=== PATIENT | male | born 1980 | race Caucasian/White ===

== ENCOUNTER 2020-01-14 18:05 | Emergency (ER) | payer OTHER, SELFPAY ==
[2020-01-14 18:21] VITALS: BP 120/65; PULSE 109; RESP 18; TEMP 39.4; O2SAT 100
--- NOTE | 2020-01-14 18:38 | ED.URI ---
HPI - URI/Sore Throat General Chief Complaint: Upper Respiratory Infection Stated Complaint: Cough/Fever/Chills/Bodyaches Time Seen by Provider: 01/14/20 18:23 Source: patient and RN notes reviewed Mode of arrival: ambulatory Limitations: no limitations History of Present Illness HPI Narrative: Patient presents today with a 2-day history of fever up to 103, body aches, chills, cough, mild headache and one episode of diarrhea. Denies shortness of breath, sore throat, nasal congestion, nausea or vomiting. He has been taking ibuprofen and cough syrup without much relief. Patient has rheumatoid arthritis and takes methotrexate. MD elicited complaint: fever and other (Body aches) Related Data Home Medications Medication Instructions Recorded Confirmed folic acid 1 mg PO DAILY 11/28/19 01/14/20 ibuprofen 800 mg PO DIRECTED 11/28/19 01/14/20 methotrexate sodium 2.5 mg PO WEEKLY 11/28/19 01/14/20 Allergies Allergy/AdvReac Type Severity Reaction Status Date / Time No Known Allergies Allergy Unknown Verified 01/14/20 18:26 Review of Systems Review of Systems: Narrative: CONSTITUTIONAL:+ Body aches, chills, fever EYES: Denies visual changes, redness, or discharge. ENT: Denies rhinorrhea, congestion, sore throat, or otalgia. CARDIOVASCULAR: Denies chest pain, palpitations, or edema. RESPIRATORY: Denies dyspnea.+ Cough GASTROINTESTINAL: Denies abdominal pain, nausea, vomiting. + Diarrhea GENITOURINARY: Denies dysuria or hematuria. SKIN: Denies rash, itching, or wounds. MUSCULOSKELETAL: Denies back pain, joint pain, or myalgia. NEUROLOGIC: Denies numbness, tingling, or weakness.+ Headache PSYCH: Denies depression or anxiety. [facility] Past Medical History Medical History (Updated 01/14/20 @ 19:02 by Yelitza Alfonso, HEADMASTER/MISTRESS, ) Rheumatoid arthritis Comments At time of signature, I have reviewed and agree with nursing past medical, surgical, social and family history unless otherwise noted. Please see nursing chart for further information. There is no relevant family history pertinent to the presenting complaint Exam Narrative: Exam Narrative: GENERAL: Ill-appearing, well-nourished, and in no acute distress. HEAD: Normocephalic, atraumatic. EYES: EOMI. No redness or drainage. Conjunctivae normal. ENT: Mucous membranes pink and moist. Nares clear. No rhinorrhea. TMs normal bilaterally. Throat mildly erythematous without edema or exudate. Uvula midline. NECK: Normal AROM. Supple. No lymphadenopathy. CHEST: No respiratory distress. Clear to auscultation. HEART: Regular rate and rhythm. No murmur appreciated. Normal peripheral pulses. EXTREMITIES: Normal range of motion. No edema. SKIN: Warm, dry, no rash. NEURO: No focal deficits. Alert and oriented x3. Gait steady. PSYCH: Normal affect. No signs of depression or anxiety. Course Course Emergency Course: Patient's course is likely influenza or similar virus. We will treat patient with Tamiflu as he is immunosuppressed. Instructed him on [id number] medications and reasons to go to the ER. Vital Signs Vital signs: Vital Signs Temperature 103.0 F H 01/14/20 18:21 Pulse Rate 109 H 01/14/20 18:21 Respiratory Rate 18 01/14/20 18:21 Blood Pressure 120/65 01/14/20 18:21 Pulse Oximetry 100 01/14/20 18:21 Temperature 103.0 F H 01/14/20 18:21 Pulse Rate 109 H 01/14/20 18:21 Respiratory Rate 18 01/14/20 18:21 Blood Pressure 120/65 01/14/20 18:21 Pulse Oximetry 100 01/14/20 18:21 Reviewed. Tachycardia likely due to fever MDM - URI/Sore Throat Differential Diagnosis Differential diagnosis: Likely upper respiratory infection, viral infection, influenza and other (Strep throat) Lab Data Attestation: I reviewed the patient's lab results. Labs: Influenza A Screen Negative Reference Range: Negative Influenza B Screen Negative Reference Range: Negative Strep Screen Presumptiv
== END 2020-01-14 19:04 | disposition home or self-care (01) ==
PROVIDERS: Emergency Provider Nurse Practitioner; PCP Nurse Practitioner Family
DX: R05 Cough (principal); R50.9 Fever, unspecified; R52 Pain, unspecified; M06.9 Rheumatoid arthritis, unspecified
CPT/HCPCS: 87081; 87804; 87880; 99213; G0463

== ENCOUNTER 2021-10-20 10:12 | Emergency (ER) | payer OTHER, SELFPAY ==
[2021-10-20 10:21] VITALS: BP 106/72; PULSE 99; RESP 16; TEMP 36.9; O2SAT 96
--- NOTE | 2021-10-20 10:28 | ED.GENADULT ---
HPI - General Adult General Chief complaint: Upper Respiratory Infection Stated complaint: congestion Time Seen by Provider: 10/20/21 10:28 Source: patient Mode of arrival: ambulatory Limitations: no limitations History of Present Illness HPI narrative: 21-year-old male patient presents to the [facility] with complaints of a cough and congestion for the past week. Patient states he was vaccinated against Covid with the one Theron & Theron shot. Patient denies any fevers, body aches or chills but states he has had a very deep cough and sometimes coughs up some sputum as well as congestion to the nose or runny nose at times. Patient denies any nausea, vomiting or diarrhea. Denies being around anybody that has been positive for Covid. Patient states he has been taking [id number] Mucinex for his symptoms. Related Data Home Medications Medication Instructions Recorded Confirmed folic acid 1 mg PO DAILY 11/28/19 10/20/21 ibuprofen 800 mg PO DIRECTED 11/28/19 10/20/21 methotrexate sodium 2.5 mg PO WEEKLY 11/28/19 10/20/21 Allergies Allergy/AdvReac Type Severity Reaction Status Date / Time No Known Allergies Allergy Unknown Verified 10/20/21 10:43 Review of Systems Review of Systems: CONSTITUTIONAL: Denies fever, chills, or sweats. EYES: Denies visual changes, redness, or discharge. ENT: Positive rhinorrhea, congestion, denies sore throat, or otalgia. CARDIOVASCULAR: Denies chest pain, palpitations, or edema. RESPIRATORY: Positive cough, denies dyspnea. GASTROINTESTINAL: Denies abdominal pain, nausea, vomiting, or diarrhea. GENITOURINARY: Denies dysuria or hematuria. SKIN: Denies rash or itching. MUSCULOSKELETAL: Denies back pain, joint pain, or myalgia. NEUROLOGIC: Denies headache, numbness, or weakness. PSYCHIATRIC: Denies anxiety or depression. [facility] Past Medical History Medical History (Updated 10/20/21 @ 11:32 by LASHAY Gray) Chronic back pain Rheumatoid arthritis Surgical History Surgical History (Updated 10/20/21 @ 10:29 by LASHAY Gray) History of tonsillectomy Comments At the time of my signature I agree with nursing past medical history, surgical, social, and family history. There is no relevant family history pertinent to the presenting complaint. Exam Narrative: GENERAL: ill-appearing, well-nourished, and in no acute distress. HEAD: Normocephalic, atraumatic. EYES: PERRLA and EOMI. ENT: Nares with erythema and edema noted bilaterally, no rhinorrhea or epistaxis. Mucous membranes moist. Posterior pharynx with no erythema, tonsillar Zaul, exudates or lesions present. Bilateral TMs are clear with no erythema or foreign bodies to the canal. NECK: Supple. No lymphadenopathy CHEST: Clear to auscultation. No respiratory distress. Patient able talk clear complete sentences. There is some coughing noted during exam. HEART: Regular rate and rhythm. No murmur heard. Normal peripheral pulses. ABDOMEN: Soft, nontender, nondistended, normal active bowel sounds. EXTREMITIES: Normal range of motion. No edema. SKIN: Warm, dry, no rash. NEURO: No focal deficits. Alert and oriented x3. Course Reevaluation(s) Reevaluation #1: Reevaluated patient notified him that his rapid Covid and flu are both negative. Discussed with him I think this is most likely viral bronchitis which is causing his cough and congestion. We will discharge him home with an albuterol inhaler, oral steroids, Tessalon Perles and a daily antihistamine. Patient verbalized understanding of this denies any other questions or concerns at this time. Date: 10/20/21 Time: 11:35 Vital Signs Vital signs: Vital Signs Temperature 36.9 C 10/20/21 10:21 Pulse Rate 99 10/20/21 10:21 Respiratory Rate 16 10/20/21 10:21 Blood Pressure 106/72 10/20/21 10:21 Pulse Oximetry 96 10/20/21 10:21 Temperature 36.9 C 10/20/21 10:21 Pulse Rate 99 10/20/21 10:21 Respiratory Rate 16 10/20/21 10:21 Blood Pr
== END 2021-10-20 11:36 | disposition home or self-care (01) ==
PROVIDERS: Emergency Provider Nurse Practitioner Family; PCP Nurse Practitioner Family
DX: J20.8 Acute bronchitis due to other specified organisms (principal); Z20.822 Contact with and (suspected) exposure to COVID-19
CPT/HCPCS: 87426; 87804; 99213; C9803; G0463

== ENCOUNTER 2022-10-30 06:25 | Emergency (ER) | payer OTHER, SELFPAY ==
[2022-10-30] VITALS (12 sets, daily range): BP systolic 120; BP diastolic 72; O2SAT 91–95
--- NOTE | ~2022-10-30 | XR_ITS ---
EXAMINATION: XR chest 1V portable INDICATION: Cough and fever, COVID 19 positive TECHNIQUE: Portable AP chest at 0734 hours COMPARISON: 11/28/2019 FINDINGS: There are minimal airspace opacities of the lung bases. No pleural effusion or pneumothorax . The cardiomediastinal silhouette is normal. IMPRESSION: 1. Minimal bibasilar airspace opacities, consistent with atelectasis versus pneumonia. Reviewed, dictated and finalized at location [facility]. OR COMMISSIONER IMPRESSION: 1. Minimal bibasilar airspace opacities, consistent with atelectasis versus pne umonia.
--- NOTE | 2022-10-30 07:23 | ED.URI ---
HPI - URI/Sore Throat General Chief Complaint: Upper Respiratory Infection Stated Complaint: upper respiratory infection Time Seen by Provider: 10/30/22 07:23 Source: patient Mode of arrival: ambulatory Limitations: no limitations History of Present Illness HPI Narrative: Patient is a 42 years old white male, COVID symptoms 5 days ago, tested +2 days later, complaining of general body aches. Currently patient on albuterol, benzonatate, and prednisone Related Data Home Medications Medication Instructions Recorded Confirmed folic acid 1 mg tablet 1 mg PO DAILY 11/28/19 10/20/21 ibuprofen 800 mg tablet 800 mg PO DIRECTED 11/28/19 10/20/21 methotrexate sodium 2.5 mg tablet 2.5 mg PO WEEKLY 11/28/19 10/20/21 Allergies Allergy/AdvReac Type Severity Reaction Status Date / Time No Known Allergies Allergy Unknown Verified 10/20/21 10:43 Review of Systems Review of Systems: All systems reviewed & are unremarkable except as noted in HPI and below PMFSH Past Medical History Medical History Chronic back pain Rheumatoid arthritis Surgical History Surgical History History of tonsillectomy Exam Narrative: General appearance: Well-developed, well-nourished Skin: Normal color Head: Normocephalic, nontraumatic Eyes: Clear conjunctiva ENT: Oropharynx normal, ears normal, nose normal Neck: Supple, nontender Chest and respiratory: Airway patent, no respiratory distress, no accessory muscle use Heart: Regular rate/rhythm Abdomen: Soft, nontender, no organomegaly, quiet bowel sounds Vascular: Normal peripheral pulses, normal capillary refill. Musculoskeletal: Normal range of motion, nontender back Neurologic: Alert and oriented ?3, FOUNDATION COORDINATOR is normal as tested, no gross motor deficit Course Course Emergency Course: Patient had COVID symptoms 5 days ago, was seen by urgent care earlier and started on benzonatate, albuterol and prednisone, complaining of COVID symptoms. Work-up today showed no significant abnormality required hospitalization. Patient to DC home and continue home medications and to follow-up with his family physician within 5 days. Vital Signs Vital signs: Vital Signs Pulse Oximetry 93 10/30/22 07:30 Blood Pressure 120/72 10/30/22 07:31 Pulse Oximetry 94 10/30/22 09:45 Oxygen Delivery Room Air 10/30/22 08:00 MDM - URI/Sore Throat Differential Diagnosis Differential diagnosis: Likely other (COVID infection) Lab Data 10/30/22 07:43 10/30/22 07:43 Labs: Lab Results 10/30/22 10/30/22 Range/Units 07:43 07:43 WBC 8.6 (4.5-10.0) K/mm3 RBC 4.65 (4.6-6.20) M/mm3 Hgb 14.5 (14.0-18.0) g/dL Hct 41.7 L (42.0-52.0) % MCV 89.7 (80-100) fl MCH 31.2 (26-34) pg MCHC 34.8 (32-36) g/dl RDW 12.9 (11.5-14.5) % Plt Count 188 (150-375) k/mm3 MPV 9.3 (7.4-10.4) fl Immature Gran % (Auto) 0.2 (0-0.5) % Neut % (Auto) 79.2 H (45.5-73.1) % Lymph % (Auto) 10.4 L (18.3-44.2) % [place] % (Auto) 9.8 H (2.6-8.5) % Eos % (Auto) 0.2 (0-4.4) % Baso % (Auto) 0.2 (0.2-1.2) % Lymph # (Auto) 0.90 (0.9-3.2) K/mm3 [place] # (Auto) 0.9 H (0.1-0.6) K/mm3 Eos # (Auto) 0.0 (0-0.3) K/mm3 Baso # (Auto) 0.0 (0.0-0.1) K/mm3 Abs Immat Gran (auto) 0.02 (0.00-0.031) K/mm3 Absolute Neuts (auto) 6.8 H (1.3-6.7) K/mm3 Absolute Nucleated RBC 0.0 (0.0-0.012) K/mm3 Nucleated RBC % 0.0 (0.0-0.2) % Sodium 131 L (137-145) mmol/L Potassium 4.7 (3.4-5.0) mmol/L Chloride 98 (98-107) mmol/L Carbon Dioxide 26 (22-30) m
[2022-10-30 07:49] LABS: Basophils Percent Auto 0.2 % (0.2-1.2); Eosinophils Percent Auto 0.2 % (0-4.4); Hematocrit 41.7 % (42.0-52.0); Hemoglobin 14.5 g/dL (14.0-18.0); Immature Granulocyte Absolute 0.02 K/mm3 (0.00-0.031); Immature Granulocyte Percent A 0.2 % (0-0.5); Lymphocytes Percent Auto 10.4 % (18.3-44.2); Mean Corpuscular HGB Conc 34.8 g/dl (32-36); Mean Corpuscular Hemoglobin 31.2 pg (26-34); Mean Corpuscular Volume 89.7 fl (80-100); Mean Platelet Volume 9.3 fl (7.4-10.4); Monocytes Absolute Auto 0.9 K/mm3 (0.1-0.6); Monocytes Percent Auto 9.8 % (2.6-8.5); Neutrophils Absolute Auto 6.8 K/mm3 (1.3-6.7); Neutrophils Percent Auto 79.2 % (45.5-73.1); Platelet Count Result 188 k/mm3 (150-375); Red Blood Count 4.65 M/mm3 (4.6-6.20); Red Cell Distribution Width 12.9 % (11.5-14.5); White Blood Count 8.6 K/mm3 (4.5-10.0)
[2022-10-30 07:55] LABS: Alveolar/Arterial O2 Gradient 39.7 mmHg; Base Excess ABG 2.7 mEq/l (+/-2.0); Fractional Inspired Oxygen 21 %; Oxygen Content ABG 19.9 %vol (16.0-22.0); Oxygen Saturation ABG 94.6 % (95.0-100.0); Oxyhemoglobin 93.2 % THb (90.0-100.0); PCO2 ABG 35.9 mmHg (35.0-45.0); PO2 FiO2 Ratio Arterial Blood 3.19 %; Total Hemoglobin 15.2 g/dL (12.0-18.0); pH ABG 7.477 (7.350-7.450)
[2022-10-30 07:56] LABS: Device ROOM AIR; Modified Allen's Test Pass; Site Drawn LEFT RADIAL
[2022-10-30 08:03] LABS: Alanine Aminotransferase 64 U/L (6-50); Albumin Level 4.6 g/dL (3.5-5.1); Alkaline Phosphatase 53 U/L (38-126); Anion Gap 7 mmol/L (8-16); Aspartate Amino Transferase 44 U/L (17-59); Bilirubin,Total 0.7 mg/dL (0.2-1.3); Blood Urea Nitrogen 18 mg/dL (9-20); Calcium 8.4 mg/dL (8.4-10.2); Carbon Dioxide 26 mmol/L (22-30); Chloride 98 mmol/L (98-107); Estimated Glomerular Filt Rate > 60; Glucose 103 mg/dL (65-110); Potassium 4.7 mmol/L (3.4-5.0); Sodium 131 mmol/L (137-145)
[2022-10-30] MEDS: IBUPROFEN 600 MG TABLET PO (08:14)
[2022-10-30] MEDS: ACETAMINOPHEN 500 MG TABLET 1000 MG PO (08:14)
== END 2022-10-30 10:24 | disposition home or self-care (01) ==
PROVIDERS: Emergency Provider Emergency Medicine; PCP Nurse Practitioner Family
DX: U07.1 COVID-19 (principal); R91.8 Other nonspecific abnormal finding of lung field
CPT/HCPCS: 36415; 36600; 71045; 80053; 82805; 85025; 99283; A9270

== ENCOUNTER 2023-03-20 04:46 | Emergency (ER) | payer OTHER, SELFPAY ==
--- NOTE | ~2023-03-20 | XR_ITS ---
Portable chest x-ray Comparison: 10/30/2022 Clinical History: Chest pain Findings: Lungs are clear, without focal consolidation or pleural effusion. Cardiomediastinal silho uette is stable. Bones and soft tissues are unremarkable. Impression: Normal chest. Reviewed, dictated and finalized at [facility]. Impression: Normal chest.
[2023-03-20 04:58] VITALS: PULSE 70; RESP 16; TEMP 36.6; O2SAT 98
--- NOTE | 2023-03-20 04:58 | ECG_ITS ---
Measurements Intervals [place] Rate: 60 P: 26 SC: 174 QRS: -16 QRSD: 96 T: 18 QT: 377 QTc: 380 Interpretive Statements SINUS RHYTHM WITH SINUS ARRHYTHMIA NORMAL ECG NO PREVIOUS ECG AVAILABLE FOR COMPARISON Electronically Signed On 03-20-2023 8:59:16 CDT by Carlos Jeffries M.D.
[2023-03-20 05:02] VITALS: BP 120/76; PULSE 76; RESP 16; O2SAT 100
[2023-03-20 05:03] VITALS: PULSE 74
[2023-03-20] MEDS: ACETAMINOPHEN 500 MG TABLET 1000 MG PO (05:15)
[2023-03-20] MEDS: methocarbamoL 750 MG TABLET 1500 MG PO (05:19)
[2023-03-20] MEDS: KETOROLAC 15 MG/ML VIAL (*BKC) IV PUSH (05:19)
[2023-03-20 05:20] LABS: Basophils Percent Auto 0.7 % (0.2-1.2); Eosinophils Absolute Auto 0.3 K/mm3 (0-0.3); Eosinophils Percent Auto 5.1 % (0-4.4); Hematocrit 44.4 % (42.0-52.0); Hemoglobin 14.8 g/dL (14.0-18.0); Immature Granulocyte Absolute 0.01 K/mm3 (0.00-0.031); Immature Granulocyte Percent A 0.2 % (0-0.5); Lymphocytes Absolute Auto 1.78 K/mm3 (0.9-3.2); Lymphocytes Percent Auto 29.3 % (18.3-44.2); Mean Corpuscular HGB Conc 33.3 g/dl (32-36); Mean Corpuscular Hemoglobin 30.6 pg (26-34); Mean Corpuscular Volume 91.7 fl (80-100); Mean Platelet Volume 9.6 fl (7.4-10.4); Monocytes Absolute Auto 0.5 K/mm3 (0.1-0.6); Monocytes Percent Auto 8.7 % (2.6-8.5); Neutrophils Absolute Auto 3.4 K/mm3 (1.3-6.7); Platelet Count Result 244 k/mm3 (150-375); Red Blood Count 4.84 M/mm3 (4.6-6.20); White Blood Count 6.1 K/mm3 (4.5-10.0)
[2023-03-20 05:30] LABS: INR 0.9; Prothrombin Time 12.2 Seconds (11.1-14.7)
[2023-03-20 05:31] LABS: Partial Thromboplastin Time 29.3 SECONDS (22.3-36.8)
--- NOTE | 2023-03-20 05:43 | ED.GENADULT ---
HPI - General Adult General Chief complaint: Chest Pain <Marcos Lovell MD - Last Filed: 03/20/23 05:49> Stated complaint: chest pain <Marcos Lovell MD - Last Filed: 03/20/23 05:49> Time Seen by Provider: 03/20/23 04:54 <Marcos Lovell MD - Last Filed: 03/20/23 05:49> History of Present Illness HPI narrative: is a 43-year-old male with history of rheumatoid arthritis presenting ED with a chief complaint of chest pain. Patient states that he has been having intermittent twinging in his chest muscles for the last 2 weeks. Starting 2 days ago it turned into a pressure that starts between his shoulder blades and radiates to the left side of his chest. It got acutely worse this morning when he woke up and is now severe. he has never experienced pain like this before, there is no alleviating factors and is worse when he leans forward. Is not associated with diaphoresis, vomiting, orexertion. He denies fever or chills,nausea, shortness of breath, URI symptoms or abdominal pain. He has no risk factors for DVT/PE. <Marcos Lovell MD - Last Filed: 03/20/23 05:49> Related Data Home medications: Home Medications Medication Instructions Recorded Confirmed folic acid 1 mg tablet 1 mg PO DAILY 11/28/19 10/20/21 ibuprofen 800 mg tablet 800 mg PO DIRECTED 11/28/19 10/20/21 methotrexate sodium 2.5 mg tablet 2.5 mg PO WEEKLY 11/28/19 10/20/21 <Marcos Lovell MD - Last Filed: 03/20/23 05:49> Allergies/adverse reactions: Allergies Allergy/AdvReac Type Severity Reaction Status Date / Time No Known Allergies Allergy Unknown Verified 03/20/23 05:04 <Marcos Lovell MD - Last Filed: 03/20/23 05:49> Review of Systems Review of Systems: All systems reviewed & are unremarkable except as noted in HPI and below <Mathew Shore MD - Last Filed: 03/20/23 18:04> PMFSH Past Medical History Medical History: Medical History Chronic back pain Rheumatoid arthritis <Marcos Lovell MD - Last Filed: 03/20/23 05:49> Surgical History Surgical History: Surgical History History of tonsillectomy <Marcos Lovell MD - Last Filed: 03/20/23 05:49> Exam Narrative: APPEARANCE: patient appears uncomfortable. Head: atraumatic. EYES: EOMI, NOSE: Atraumatic NECK: Trachea midline RESPIRATORY: No increased rate of breathing , clear to auscultation bilaterally CARDIOVASCULAR: RRR, no peripheral edema, no reproducible chest pain to palpation. Pain increases when he leans forward. ABDOMINAL: Non-distended , soft no guarding or rebound MUSCULOSKELETAl: No obvious deformities NEURO: Alert. Moving 4/4 extremities SKIN:: Warm, dry. Normal color PSYCHIATRIC: Normal affect <Marcos Lovell MD - Last Filed: 03/20/23 05:49> Course Reevaluation(s) Reevaluation #1: Patient care was signed out to me by Dr. Lovell 43-year-old male presented the emergency department for evaluation of chest pain. Patient states he did feel improved with the treatment of the wrist department. Patient does suspect a muscular injury and fatigue due to his workout schedule. Patient was afebrile with no leukocytosis. Patient's electrolytes were within normal limits. Patient had negative serial troponins and negative BNP. Chest x-ray showed a normal chest. Patient and were comfortable to plan for discharge and close follow-up. All question concerns were addressed. Patient was well-appearing at time of discharge. Patient was encouraged of close follow-up with her primary care physician for additional outpatient cardiac testing as needed. <Mathew Shore MD - Last Filed: 03/20/23 18:04> Vital Signs Vital signs: Vital Signs Temperature 97.8 F 03/20/23 04:58 Pulse Rate 70 03/20/23 04:58 Respiratory Rate 16 03/20/23 04:58 Pulse Oximetry 98 03/20/23 04:58 Oxygen D
[2023-03-20 05:45] LABS: Alanine Aminotransferase 65 U/L (6-50); Albumin Level 4.7 g/dL (3.5-5.1); Alkaline Phosphatase 79 U/L (38-126); Anion Gap 7 mmol/L (8-16); Aspartate Amino Transferase 36 U/L (17-59); Bilirubin,Total 0.7 mg/dL (0.2-1.3); Blood Urea Nitrogen 27 mg/dL (9-20); Calcium 9.1 mg/dL (8.4-10.2); Carbon Dioxide 28 mmol/L (22-30); Chloride 107 mmol/L (98-107); Estimated CRCL calculation 74 ml/min; Estimated Glomerular Filt Rate > 60; Glucose 105 mg/dL (65-110); Lipase 102 U/L (23-300); NT Pro B Type Natriuretic Pept < 20 pg/mL (19.9-100); Potassium 4.3 mmol/L (3.4-5.0); Sodium 142 mmol/L (137-145); Troponin I < 0.012 ng/mL (0.000-0.034)
[2023-03-20 05:53] LABS: D Dimer 0.33 ug/mL (<0.48)
[2023-03-20 06:09] VITALS: BP 110/76; PULSE 69; RESP 17; O2SAT 96
[2023-03-20 08:00] VITALS: BP 120/70; PULSE 72; RESP 16; O2SAT 98
[2023-03-20 08:21] LABS: Troponin I < 0.012 ng/mL (0.000-0.034)
[2023-03-20 09:26] VITALS: BP 142/88; PULSE 84; RESP 16; O2SAT 98
== END 2023-03-20 09:32 | disposition home or self-care (01) ==
PROVIDERS: Emergency Provider Emergency Medicine; PCP Internal Medicine
DX: R07.9 Chest pain, unspecified (principal); M06.9 Rheumatoid arthritis, unspecified
CPT/HCPCS: 36415; 71045; 80053; 83690; 83880; 84484; 85025; 85380; 85610; 85730; 93005; 96374; 99284; A9270; J1885

== ENCOUNTER 2024-04-14 10:20 | Emergency (ER) | payer OTHER, SELFPAY ==
[2024-04-14] VITALS (7 sets, daily range): BP systolic 105–122; BP diastolic 76–86; PULSE 65–72; RESP 16–17; TEMP 36.4–36.6; O2SAT 96–100
--- NOTE | ~2024-04-14 | CT_ITS ---
EXAMINATION: CT brain wo con DATE: 04/14/2024 11:55 INDICATION: Headache, fatigue, dizziness for 3 days. Blurry vision. History of migraines. TECHNIQUE: Computed tomography (CT) of the head was performed without intravenous contrast. The mA wa s adjusted according to patient size. Iterative reconstruction technique was employed. Exam dose: 68 1.00 mGy-cm total exam DLP. COMPARISON: None FINDINGS: No intracranial mass lesion or hemorrhage or cerebrovascular accident, midline shift or mas s effect is detected. Normal ventricular size. No subdural or epidural hematoma. No skull fracture or bone destruction. The mastoid air cells and included paranasal sinuses are normally developed and aerated. IMPRESSION: No significant abnormality Reviewed, dictated and finalized at [facility]. Reviewed, dictated and finalized at [facility]. IMPRESSION: No significant abnormality
[2024-04-14] MEDS: dexAMETHasone SOD PHOS INJ 10 MG/ML 1 ML VIAL IV PUSH (11:59)
[2024-04-14] MEDS: diphenhydrAMINE HCl INJ 50 MG/ML VIAL 25 MG IV PUSH (11:59)
[2024-04-14] MEDS: KETOROLAC 30 MG/ML VIAL (*BKC) IV PUSH (11:59)
[2024-04-14] MEDS: METOCLOPRAMIDE HCL INJ 10 MG/2 ML VIAL IV PUSH (11:59)
[2024-04-14 12:14] LABS: Basophils Percent Auto 0.6 % (0.2-1.2); Eosinophils Absolute Auto 0.1 K/mm3 (0-0.3); Eosinophils Percent Auto 2.1 % (0-4.4); Hematocrit 42.7 % (42.0-52.0); Hemoglobin 14.4 g/dL (14.0-18.0); Immature Granulocyte Absolute 0.02 K/mm3 (0.00-0.031); Immature Granulocyte Percent A 0.3 % (0-0.5); Lymphocytes Absolute Auto 1.44 K/mm3 (0.9-3.2); Mean Corpuscular HGB Conc 33.7 g/dl (32-36); Mean Corpuscular Hemoglobin 31.1 pg (26-34); Mean Corpuscular Volume 92.2 fl (80-100); Mean Platelet Volume 9.9 fl (7.4-10.4); Monocytes Absolute Auto 0.4 K/mm3 (0.1-0.6); Monocytes Percent Auto 6.7 % (2.6-8.5); Neutrophils Absolute Auto 4.2 K/mm3 (1.3-6.7); Neutrophils Percent Auto 67.3 % (45.5-73.1); Platelet Count Result 231 k/mm3 (150-375); Red Blood Count 4.63 M/mm3 (4.6-6.20); Red Cell Distribution Width 13.4 % (11.5-14.5); White Blood Count 6.3 K/mm3 (4.5-10.0)
--- NOTE | 2024-04-14 12:27 | ED.HA ---
HPI - Headache General Chief Complaint: Headache Stated Complaint: headache X3 days Time Seen by Provider: 04/14/24 11:03 History of Present Illness HPI Narrative: 44-year-old male history of rheumatoid arthritis presents to the emergency room for evaluation of gradual onset of a headache began 5 days ago. Patient states headache is located behind his eyes and posteriorly. States yesterday the headache began to radiate to his left temporal region. Denies any vision or hearing changes. Denies fever. Denies injury or trauma. Denies nausea or vomiting. Denies photosensitivity. Describes the headache as a squeezing sensation. He has taken ibuprofen on multiple occasions with little relief of symptoms. Patient does endorse increased amounts of stress at work. Related Data Home Medications Medication Instructions Recorded Confirmed folic acid 1 mg tablet 1 mg PO DAILY 11/28/19 10/20/21 ibuprofen 800 mg tablet 800 mg PO DIRECTED 11/28/19 10/20/21 methotrexate sodium 2.5 mg tablet 2.5 mg PO WEEKLY 11/28/19 10/20/21 Allergies Allergy/AdvReac Type Severity Reaction Status Date / Time No Known Allergies Allergy Unknown Verified 04/14/24 10:20 Review of Systems Review of Systems: ROS unremarkable except for the HPI PMFSH Past Medical History Medical History Chronic back pain Rheumatoid arthritis Surgical History Surgical History History of tonsillectomy Exam Narrative: GENERAL: Well-appearing, well-nourished, no physical limitations, and in no acute distress. HEAD: Normocephalic, atraumatic. EYES: Conjunctivae normal, PERRLA and EOMI. ENT: External nose normal, Nares clear, no rhinorrhea or epistaxis. Mucous membranes moist. Oropharynx without tonsillar hypertrophy exudate or other lesions. External ears normal, bilateral TMs normal bilaterally CHEST: Clear to auscultation. No respiratory distress. No wheezes rales or rhonchi. HEART: Regular rate and rhythm. No murmur heard. Normal peripheral pulses. EXTREMITIES: Normal range of motion. No edema. No clubbing or cyanosis SKIN: Warm, dry, no rash. No noted wounds NEURO: No focal deficits. Alert and oriented x3. MAEW. CN's II-XI intact bilaterally, normal gait PSYCH: Cooperative. Normal mood and affect. Course Vital Signs Vital signs: Vital Signs Temperature 36.4 C 04/14/24 10:35 Pulse Rate 72 04/14/24 10:35 Respiratory Rate 16 04/14/24 10:35 Blood Pressure 121/85 04/14/24 10:35 Pulse Oximetry 98 04/14/24 10:35 Oxygen Delivery Room Air 04/14/24 10:35 Temperature 36.4 C 04/14/24 10:35 Pulse Rate 65 04/14/24 12:20 Respiratory Rate 17 04/14/24 12:20 Blood Pressure 105/76 04/14/24 12:20 Pulse Oximetry 96 04/14/24 12:20 Oxygen Delivery Room Air 04/14/24 10:35 MDM - Headache Lab Data 04/14/24 11:54 04/14/24 11:55 Labs: Lab Results 04/14/24 04/14/24 Range/Units 11:54 11:55 WBC 6.3 (4.5-10.0) K/mm3 RBC 4.63 (4.6-6.20) M/mm3 Hgb 14.4 (14.0-18.0) g/dL Hct 42.7 (42.0-52.0) % MCV 92.2 (80-100) fl MCH 31.1 (26-34) pg MCHC 33.7 (32-36) g/dl RDW 13.4 (11.5-14.5) % Plt Count 231 (150-375) k/mm3 MPV 9.9 (7.4-10.4) fl Immature Gran % (Auto) 0.3 (0-0.5) % Neut % (Auto) 67.3 (45.5-73.1) % Lymph % (Auto) 23.0 (18.3-44.2) % [place] % (Auto) 6.7 (2.6-8.5) % Eos % (Auto) 2.1 (0-4.4) % Baso % (Auto) 0.6 (0.2-1.2) % Lymph # (Auto) 1.44 (0.9-3.2) K/mm3 [place] # (Auto) 0.4 (0.1-0.6) K/mm3 Eos # (Auto) 0.1 (0-0.3) K/mm3 Baso # (Auto) 0.0 (0.0-0.1) K/mm3 Abs Immat Gran (auto) 0.02 (0.00-0.031) K/mm3 Absolute Neuts (auto) 4.2 (1.3-6.7) K/mm3 Absolute Nucleated RBC 0.000 (0.0-0.012) K/mm3 Nucleated RBC % 0.0 (0.0-0.2) % Sodium 140 (137-145) mmol/L Potassium 4.1 (3.4-5.0
[2024-04-14 12:30] LABS: Alanine Aminotransferase 50 U/L (6-50); Albumin Level 4.9 g/dL (3.5-5.1); Alkaline Phosphatase 65 U/L (38-126); Anion Gap 9 mmol/L (4-12); Aspartate Amino Transferase 31 U/L (17-59); Bilirubin,Total 0.9 mg/dL (0.2-1.3); Blood Urea Nitrogen 21 mg/dL (9-20); Calcium 9.6 mg/dL (8.4-10.2); Carbon Dioxide 26 mmol/L (22-30); Chloride 105 mmol/L (98-107); Estimated CRCL calculation 81 ml/min; Estimated Glomerular Filt Rate > 60; Glucose 96 mg/dL (65-110); Potassium 4.1 mmol/L (3.4-5.0); Sodium 140 mmol/L (137-145)
== END 2024-04-14 13:30 | disposition home or self-care (01) ==
PROVIDERS: Emergency Provider Nurse Practitioner Family; PCP Internal Medicine
DX: G44.209 Tension-type headache, unspecified, not intractable (principal); M06.9 Rheumatoid arthritis, unspecified; F41.9 Anxiety disorder, unspecified
CPT/HCPCS: 36415; 70450; 80053; 85025; 96374; 96375; 99284; J1100; J1200; J1885; J2765

== ENCOUNTER 2024-06-07 12:25 | Outpatient (CLI) | payer OTHER, SELFPAY ==
--- NOTE | ~2024-06-07 | XR_ITS ---
Clinical Indication: Cough PA and lateral views of the chest: Comparison: 03/20/2023 Findings: The lungs are clear, without evidence of focal consolidation or pleural effusion. Cardiome diastinal silhouette is within normal limits. Bones and soft tissues are unremarkable. Impression: Normal chest. Reviewed, dictated and finalized at location . Impression: Normal chest.
== END 2024-06-07 12:26 ==
LOC: MICIMG 12:26
PROVIDERS: PCP Internal Medicine; Visit Provider Internal Medicine
DX: R05.1 Acute cough (principal); R53.83 Other fatigue
CPT/HCPCS: 71046

== ENCOUNTER 2025-08-24 00:25 | Emergency (ER) | payer OTHER, SELFPAY ==
--- OUTSIDE RECORDS SUMMARY | 2025-08-23 04:23 | XMS_ITS | Continuity of Care Document ---
Author Organization [employer] MD Address [address] [place] [address] Phone Care Team Providers Care Dye Blender Name Role Phone Chely Sanon Unavailable Unavailable Allergies, Adverse Reactions, Alerts Substance Reaction Status Criticality No Known Allergies Active No Inform ation Medications Medication Instructions Dosage Effective Dates (start - stop) Status Comments prednisone 20 mg tablet take 1 tablet by oral route 2 times every day 20 MG - Active methocarbamol 500 mg tablet take 1 tablet by oral route 4 times every day as needed 500 MG - Active IBUPROFEN 800MG TABLETS TAKE 1 TABLET BY MOUTH THREE TIMES DAILY WITH FOOD - Active ketoconazole 2 % shampoo apply by topical route every day to the affected area(s), lather, leave in place for 5 minutes, and then rinse off with water 0.00 - Active SILDENAFIL 50MG TABLETS TAKE 1 TABLET BY MOUTH TWICE DAILY 1 HOUR BEFORE SEXUAL ACTIVITY NEEDED - Active methotrexate sodium 2.5 mg tablet take 8 tablet by oral route every week 20 MG - Active Procedures Procedure Date MED LIST [facility] OFF[facility] RYQRE-BOP-JANGLWFG SYST BP LT 130 MM HG DIAST BP < 80 MM HG MED LIST [facility] [place]-12-2025 OFFICE KJSWS-FUA-SNLLZVKE BODY MASS INDEX DOCD SYST BP LT 130 MM HG DIAST BP < 80 MM HG OFFICE FLNGS-SIE-CBSZSMGT OFFICE AVLMO-TIJ-OHTSWWCJ SYST BP LT 130 MM HG DIAST BP < 80 MM HG OFFICE INPEO-QKZ-LJOXKOAH BODY MASS INDEX DOCD SYST BP LT 130 MM HG DIAST BP < 80 MM HG ROUTINE VENIPUNCTURE [place] CBC, INC PLATELETS AND DIFFERENTIAL TESTOSTERONE, TOTAL THYROID STIMULATION HORMONE(TSH) 2022 VITAMIN B12 (SERUM) Pt inelig neg scrn depres OFFICE SYJLT-PUX-MWJI-MED BODY MASS INDEX DOCD SYST BP LT 130 MM HG DIAST BP < 80 MM HG Advance Directives Directive Yes / No Effective Date File Name Other Directive No N/A N/A WARNING:The information contained in this section is historical and is provided for information only and does not constitute a legal document or any assurance that the information is still accurate. Please verify the information with the shearer of the legal document before using it for clinical purposes. Encounters Encounter Description Practice Location Reason(s) For Visit Diagnoses Date Provider Providers Copied on Encounter OFFICE BHFWS-BFQ-SGI ANDED [employer] MD, [address], [place], [place], [address], tel:[phone] [facility] back pain (chief complaint) Acute left-sided low back pain, unspecified whether sciatica present Sep-3 0- 5 Leone Chely. [address] [place], [place], [address] , [place]. tel:[phone] Referring Provider: Dawson Murphy, [address] [place], [address] . tel:[phone] [employer] [facility], [address], [place], [place], [address], [place] tel:[phone] [facility] Romel No Information 5 English Osman. [address] [place], [place], [address] , [place]. tel:[phone] OFFICE EVDUQ-TCM-NCB ANDED [facility], [address], [place], [place], [address], [place] tel:[phone] [facility] Romel scalp dryness (chief complaint) Seborrheic dermatitis 5 Sulema Mo. [address] [place], [place], [address] , [place]. tel:[phone] Referring Provider: Dawson Murphy, [place], [address] . tel:[phone] [facility] MD, [address], [place], [place], [address], tel:[phone] [facility] Romel Family history of malignant neoplasm of digestive organs 4 English Osman. [address] [place], [place], [address] , [place]. tel:[phone] [facility] MD, [address], [place], [place], [address], [place] tel:[phone] [facility] MD Romel No Information 4 English Osman. [address] [place], [place], [address] , [place]. tel:[phone] OFFICE TLWBE-RNE-NRU ANDED [facility], [address], [place], [place], [address], [place] tel:[phone] [facility] Romel bronchitis (chief complaint) Acute cough 4 English Osman. [address] [place], [place], [address] , [place]. tel:[phone] Referring Provider: Dawson Murphy, [place], [address] . tel:[phone] OFFICE VLAHW-TKQ-LWE R[facility], [address], [place], [place], [address], [place] tel:[phone] [facility] er follow up (chief complaint) Rheumatoid arthritis, involving unspecified site, unspecified whether rheumatoid factor presentAnxiety 4 English Osman. [address] [place], [place], [address] , [place]. tel:[phone] Referring Provider: Dawson Murphy, [address] [place], [address] . tel:[phone] OFFICE KSSDN-BFM-IVY ANDED [facility], [address], [place], [place], [address], [place] tel:[phone] [facility] er follow up (chief complaint) Pleurisy 3 English Osman. [address] [place], [place], [address] , [place]. tel:[phone] Referring Provider: Dawson Murphy, [address] [place], [address] . tel:[phone] [facility], [address], [place], [place], [address], [place] tel:[phone] [facility] Erectile dysfunction, unspecified erectile dysfunction type 3 English Osman. [address] [place], [place], [address] , [place]. tel:[phone] [facility], [address], [place], [place], [address], [place] tel:[phone] [facility] No Information 3 Alberto Burks. [address], [id number] , [place]. tel: [phone] Referring Provider: Dawson Murphy, [address] [place], [address] . tel:[phone] [facility], [address], [place], [place], [address], [place] tel:[phone] [facility] Erectile dysfunction, unspecified erectile dysfunction typeFatigue, unspecified type 3 English Osman. [address] [place], [place], [address] , . tel:[phone] Referring Provider: Dawson Murphy, [address] [place], [address] . tel:[phone] [facility], [address], [place], [place], [address], [place] tel:[phone] [facility] No Information 3 Alberto Burks. [address] [facility] [address], [place], [place], [address] , [place]. tel: [phone] Referring Provider: Chely Leone, [address] [place], [address] . tel:[phone] OFFICE BDHYW-ARW-ZPH P-MED [facility], [address], [place], [place], [address], tel:[phone] [facility] Patient encounter (chief complaint) Fatigue, unspecified typeErectile dysfunction, unspecified erectile dysfunction typeRheumatoid arthritis, involving unspecified site, unspecified whether rheumatoid factor presentBody mass index [BMI] 27.0-27.9, adult 3 Sulema Mo. [address] [place], [place], [address] , . tel:[phone] Referring Provider: Dawson Murphy, [address] [place], [address] . tel:[phone] Family History Family Member Type Diagnosis Age At Onset Mother Problem Allergies Mother Problem Cancer, skin Maternal grandfather Problem Cancer, colon Maternal grandfather Problem Alcoholism Father Problem Mental disorder Sister Problem Depression Sister Problem Mental disorder Sister Problem Alcoholism Father Problem Seizure disorder Mother Problem Eczema Maternal grandfather Problem Coronary artery dise ase Maternal grandfather Problem Hypertension Sister Problem Eczema Father Problem Alcoholism Mother Problem ADD/ADHD Immunizations Vaccine Date Status Comments Fluzone Quad, preservative free, split virus, 0.5mL dosage administered Source: Source Unspecified J&J COVID/Adenovirus Vaccine [id number] viral particles/0.5mL administered Note: [facility] ; Source: Public Agency Payers Payer name Insurance type Covered democrat ID Lashell SAENZ (s) OPEN ACCESS CI [id number] Social History Type Description Quantity Date Captured Comments Alcohol Use Details hard liquor Caffeine Use Details Unknown Tobacco Use Status Current non-smoker Smoking Status Never smoker Non-Smoking Tobacco Use Details : No Details Available : No Details Available Sex Male Sexual Orientation Straight or heterosexual Gender Identity Male Vital Signs Date / Time: Height Weight BMI Pulse Rate Blood Pressure Temperature Respiratory Rate Body Surface Area Head Circumference Head Circ. Percentile Wt./True. Percentile BMI percentile Pulse Ox Inhaled Ox 2:42 PM 78.471 kg (173.00 lbs) 78 /min 116/76 mm[Hg] Chief Complaint And Reason For Visit From encounter dated '08/23/2025 09:23'. back pain (chief complaint). Description: 45 year old male who presents with low back pain since yesterday. He went golfing yesterday and felt good for first 15 swings. He had pain on approximately 16th swing. Pain is located in left lower back and left glute. Pain is improved with sitting and laying flat. Pain is worse with movement from sitting and reaching. He has applied topical relief, CBD oil and ibuprofen 800 mg tablet. Denies numbness, tingling, loss of bowel or bladder control. Reason For Referral Reason For Referral No Information Plan Of Treatment Date Type Action Status Referral Ordered: COLONOSCOPY, Flexible, Proximal To Splenic, Diagnostic, Wor W/O Collection Of Sp ordered Referral Referred To: [address] [facility]
[address], [phone] Ordered: XR chest, PA and lateral views ordered Referral Ordered: Efra Lima MD -Urology (related to Erectile dysfunction, unspecified erectile dysfunction type) ordered Referral Ordered: Efra Lima MD -Urology (related to Erectile dysfunction, unspecified erectile dysfunction type) ordered Referral Referred To: Efra Lima MD [address] [place], [phone] Ordered: Referrals: Urology. Efra Lima MD. Consult - Level 1 ordered Patient Education Low Back Pain: Exercise s completed History Of Present Illness Encounter Date Complaint History Of Prese nt Illness back pain 45 year old male who presents with low back pain since yesterday. He went golfing yesterday and felt good for first 15 swings. He had pain on approximately 16th swing. Pain is located in left lower back and left glute. Pain is improved with sitting and laying flat. Pain is worse with movement from sitting and reaching. He has applied topical relief, CBD oil and ibuprofen 800 mg tablet. Denies numbness, tingling, loss of bowel or bladder control. scalp dryness 45 year old male who presents with dry scalp that is worsening. He has tried higher quality moisturizer and conditioner with no improvement. He reports feeling lumps on scalp. He has mild itching and no painful. bronchitis Onset: 2 weeks a go. Additional information: now cough is back was treated at [facility] got inhaler zpack? prednisone?went to [place] in between. er follow up ra-- controlled on medanxiety-- doing better er follow up went to er for p ravinder normal nowstill taking ibuprfoen Patient encounter Chief complain t: New Patient.Patient presents to establish care as a new patient. Patient's last visit to a primary care provider was 2 months ago. He was seeing Jaja Cameron NP in [place], [place]. His is a patient here and recommended our office. AcutePatient feels that his testosterone levels have been dropping. He reports being very active. He reports feeling more sluggish and fatigued. His last testosterone level for the past 2 years ago was 300s. He reports having ED and takes sildenafil as needed. He reports his recovery time after intercourse compared to previous years. Patient reports he does not snoreChronicRATakes methotrexate weekly for the past 3-5 years. He was diagnosed several years ago. He is following with radiophone operator ([facility]). He sees them every 3 months. Takes ibuprofen 800 mg as neededEDTakes sildenafil as needed Specialists/Other Providers: rheumatologistAllergies: NKDATobacco/Alcohol/Drugs: socially with cigars/social/neverScreeningsnone neededImmunizationsCOVID - J&J 03/01/21 and one unknown boosterFlu - UTDTd - unsure Functional Status Date Functional Assessmen t No Information Instructions Date Instruction Additional Infor margarita Begin taking prednis one as prescribedTake methocarbamol as needed. DO not take with alcohol or other medications that can make you drowsyLet us know if symptoms do not improve or worsenDo exercises when you feel you are able Related to Acute left-sided low back pain, unspecified whether sciatica present Begin using ketocona zole shampoo 3-4 times per weekLeave shampoo on for 3-5 minutes then rinseLet us know if symptoms do not improve or worsen Related to Seborrheic dermatitis will send prednsison e and cough syrupwill get xray Related to Acute cough Medication management continue to use hydr oxyzinecan take 2 tabs at a time if you need to Related to Anxiety continue medsfollow up with Brant muñoz Related to Rheumatoid arthritis, involving unspecified site, unspecified whether rheumatoid factor present Medication management reduce ibuprofen and cyclobenzaprine as able Related to Pleurisy Medication management Continue to follow with rheumato logist Related to Rheumatoid arthritis, involving unspecified site, unspecified whether rheumatoid factor present Continue sildenafil as neededWe will check labs soon Related to Erectile dysfunction, unspecified erectile dysfunction type We will check labs s oon (CBC, thyroid labs, vitamin B12 level, testosterone) Related to Fatigue, unspecified type Assessments Type Assessment Date assessment Acute left-sided low back pain, unspecified whether sciatica present Mental Status Date Cognitive Assessment Orientation - [place] ed to time, place, person, situation. Patient Care Teams Name Effective Dates (start - stop) Status Members No Information
--- NOTE | ~2025-08-24 | CT_ITS ---
EXAMINATION: CT lumbar spine wo con DATE: 08/24/2025 04:10 INDICATION: Sudden back pain. TECHNIQUE: Computed tomography (CT) of the lumbar spine was performed without intravenous contrast. Automated exposure control and iterative reconstruction technique were employed. The dose-length product was 406.82 mGy-cm. COMPARISON: None FINDINGS: There is 6 degrees levocurvature of lumbar spine. There are Schmorl's nodes at multiple levels. There is mildly decreased disc height at L3-L4. The bladder is distended. The following disc levels are specifically discussed: L1-L2: The disc does not extend beyond the endplate margin. There is no facet joint osteoarthritis. There is no neural foraminal stenosis. There is no central canal stenosis. L2-L3: The disc does not extend beyond the endplate margin. There is mild right facet joint osteoarthritis. There is no neural foraminal stenosis. There is no central canal stenosis. L3-L4: The disc is bulging. There is mild bilateral facet joint osteoarthritis. There is mild bilateral neural foraminal stenosis. There is mild central canal stenosis. L4-L5: The disc does not extend beyond the endplate margin. There is mild bilateral facet joint osteoarthritis. There is no neural foraminal stenosis. There is no central canal stenosis. L5-S1: The disc is bulging. There is no facet joint osteoarthritis. There is mild bilateral neural foraminal stenosis. There is mild central canal stenosis. IMPRESSION: 1. Mild lumbar spondylosis. Reviewed, dictated and finalized at location E. IMPRESSION: 1. Mild lumbar spondylosis.
[2025-08-24 00:28] VITALS: BP 105/72; PULSE 77; RESP 22; TEMP 37.1; O2SAT 99
--- OUTSIDE RECORDS SUMMARY | 2025-08-24 00:28 | XMS_ITS | Clinical Summary ---
Author Organization [facility] Address [address] [place] [address] Care Team Providers Care Educational Assistant Teacher Name Role Phone Preet Ulrich MD Unavailable [phone] Dawson Murphy MD Primary Care Provider [phone] Allergies No known active allergies Medications ibuprofen (ADVIL,MOTRIN) 800 mg tablet Take 800 mg by mouth every 6 (six) hours as needed for pain Active folic acid (FOLVITE) 1 mg tablet Take 1 tablet (1 mg total) by mouth daily 90 tablet 1 3 Active methotrexate 2.5 mg tablet TAKE 8 TABLETS BY MOUTH ONCE WEEKLY 32 tablet 3 5 Active methotrexate 2.5 mg tablet TAKE 8 TABLETS BY MOUTH ONCE WEEKLY 32 tablet 3 5 07/26/20 25 Discontinued Active Problems Problem Noted Date Diagnosed Date Chronic midline low back pain without sciatica 0 08/20/2024 Assessment & Plan (08/20/2024 2:09 PM CDT): Her primary complaint has been increased discomfort in the lower back after long hours on his feet over the past several days. Has TTP along the left paraspinal muscles. Do not suspect that his lower back complaints are related to his inflammatory arthritis, which was discussed today. Recommended physical therapy and given orders today. snf current use of therapeutic drug 2018 Assessment & Plan (05/03/2025 2:34 PM CDT): Hepatitis negative: 09/2019 Quantiferon negative: 09/2019 Failed meloxicam and naproxen. Assessment & Plan (01/11/2025 2:42 PM EDUCATIONAL ASSISTANT): Hepatitis negative: 09/2019 Quantiferon negative: 09/2019 Failed meloxicam and naproxen. Assessment & Plan (10/05/2024 4:01 PM EDUCATIONAL ASSISTANT): Hepatitis negative: 09/2019 Quantiferon negative: 09/2019 Failed meloxicam and naproxen. Assessment & Plan (06/10/2024 3:06 PM CDT): Hepatitis negative: 09/2019 Quantiferon negative: 09/2019 Failed meloxicam and naproxen. Assessment & Plan (01/14/2024 4:23 PM EDUCATIONAL ASSISTANT): Hepatitis negative: 09/2019 Quantiferon negative: 09/2019 Failed meloxicam and naproxen. Assessment & Plan (10/01/2023 3:31 PM EDUCATIONAL ASSISTANT): Hepatitis negative: 09/2019 Failed meloxicam and naproxen. Assessment & Plan (06/04/2023 3:19 PM CDT): Hepatitis negative: 09/2019 Failed meloxicam and naproxen. Assessment & Plan (01/08/2023 2:45 PM EDUCATIONAL ASSISTANT): Hepatitis negative: 09/2019 Failed meloxicam and naproxen. Assessment & Plan (09/04/2022 3:23 PM CDT): Hepatitis negative: 09/2019 Failed meloxicam and naproxen. Assessment & Plan (06/06/2022 2:57 PM CDT): Hepatitis negative: 09/2019 Failed meloxicam and naproxen. Assessment & Plan (02/18/2022 3:42 PM CDT): Hepatitis negative: 09/2019 Failed meloxicam and naproxen. Assessment & Plan (11/09/2021 5:19 PM EDUCATIONAL ASSISTANT): Hepatitis negative: 09/2019 Failed meloxicam and naproxen. Assessment & Plan (03/05/2021 11:33 AM CDT): Hepatitis negative: 09/2019 Failed meloxicam and naproxen. Assessment & Plan (12/04/2020 11:41 AM EDUCATIONAL ASSISTANT): Hepatitis negative: 09/2019 Failed meloxicam and naproxen. Assessment & Plan (07/26/2020 11:55 AM CDT): Hepatitis negative: 09/2019 Failed meloxicam and naproxen. Assessment & Plan (05/03/2020 11:21 AM CDT): Hepatitis negative: 09/2019 Failed meloxicam and naproxen. Assessment & Plan (01/11/2020 4:37 PM EDUCATIONAL ASSISTANT): Hepatitis negative: 09/2019 Failed meloxicam and naproxen. Assessment & Plan (12/03/2019 11:20 AM EDUCATIONAL ASSISTANT): Hepatitis negative: 09/2019 Failed meloxicam and naproxen. Assessment & Plan (10/25/2019 3:11 PM EDUCATIONAL ASSISTANT): Hepatitis negative: 09/2019 Failed meloxicam and naproxen. Seronegative rheumatoid arthritis 10/08/2019 Overview (06/06/2022): Labs (10/08/19): negative. HLA-B27 neg AVISE (10/08/19): DOMINICK positive by lanette only; otherwise negative Hepatitis negative: 09/2019 Quantiferon negative: 09/2019 Xray L-spine (10/12/19): negative Xray SI joints (10/12/19): negative Xray pelvis (10/12/19): negative Xray Rt foot (10/12/19): negative Xray Lt foot (10/12/19): negative Xray Lt hand (10/12/19): old ununited avulsion fx ant base of 4th middle phalanx Xray Rt hand (10/12/19): negative CXR (10/12/19): negative US right hand/wrist (10/15/19): Mild effusions and power doppler on examination which will have to be correlated clinically. Marked synovial thickening in the wrist, 3rd and 4th MCP and 2nd PIP joints. Moderate synovial thickening in the 3rd PIP joint. Grade 1 power doppler in the wrist and radial/scaphoid joint. Grade 1 effusion in the volar 4th MCP and 3rd PIP joints. Assessment & Plan (05/03/2025 3:54 PM CDT): Low cdai. No obvious synovitis with mild tenderness noted on peripheral exam today. Good relief with IM kenalog in the past. C/o flare today starting last week but reports he was doing well prior to flare. He defers steroids or changes to tx at this time. -Continue MTX 20mg weekly and folic acid 1mg daily -Continue ibuprofen 800mg TID prn pain/flares -advised to call if flare would worsen/not resolve and I can send out a prednisone taper. -Routine labs today. -Follow up in 3-4 months. Sooner if needed. Assessment & Plan (01/11/2025 2:43 PM EDUCATIONAL ASSISTANT): Low cdai. Minimal synovitis without tenderness noted on peripheral exam today. Good relief with IM kenalog in the past. Doing well overall without any significant flares since last visit so will continue current tx plan. -Continue MTX 20mg weekly and folic acid 1mg daily -Continue ibuprofen 800mg TID prn pain/flares -Routine labs today. -Follow up in 3-4 months. Sooner if needed. Assessment & Plan (10/05/2024 4:00 PM EDUCATIONAL ASSISTANT): Low-moderate cdai. Minimal synovitis with tenderness mainly in the PIP joints (R>L) noted on peripheral exam today. Good relief with IM kenalog last visit and notes pain today is not as severe so he defers making any changes to his current treatment plan. -Continue MTX 20mg weekly and folic acid 1mg daily -Continue ibuprofen 800mg TID prn pain/flares -Advised to call by Friday if flare worsens and I can give a prednisone taper if needed. -Routine labs today. -Follow up in 3-4 months. Sooner if needed. Assessment & Plan (08/20/2024 2:08 PM CDT): CDAI 14. Presents today due to a flare symptoms over the last several days with increased joint pain and stiffness affecting the hands/wrists, hips, lower back, knees, and feet. Has scattered tenderness across several joints, as above. Due to burden of disease, will administer kenalog 100 mg IM injection, in office, today. Patient was advised of the potential side effects of the medication, including but not limited to increased blood sugar, weight gain, avascular necrosis, glaucoma, cataracts, and/or osteoporosis. Humira has been previously discussed and he eventually deferred this. Rediscussed today and would like to reconsider at next visit depending on how he responds with steroid injection. Will continue methotrexate 20 mg p.o. weekly, FA 1 mg daily, and ibuprofen 800 mg t.i.d. p.r.n.. Routine labs today. Follow up at scheduled appointment in 6 weeks. Sooner if needed. Assessment & Plan (06/10/2024 3:22 PM CDT): Low-moderate cdai. Minimal synovitis with tenderness noted on peripheral exam today. Significant relief with IM kenalog last visit and so deferred starting Humira. Overall he feels his symptoms have returned to baseline so will defer addition of biologics at this time. Continue MTX 20mg weekly, folic acid 1mg daily, and ibuprofen 800mg TID prn. Routine labs today. Follow up in 3-4 months. Sooner if needed. Assessment & Plan (01/14/2024 4:31 PM EDUCATIONAL ASSISTANT): Moderate cdai. Minimal synovitis with increased tenderness noted on peripheral joint exam today along with increasing pain complaints in the hips, feet, and knees. Notes occasional low back stiffness in the mornings but improves with ibuprofen. Due to worsening joint complaints, will start approval of humira 40mg SQ [id number]. Continue MTX 20mg weekly, folic acid 1mg daily, and ibuprofen 800mg TID prn. Routine labs today. Follow up in 2 months. Sooner if needed. Due to burden of disease, will administer kenalog 100 mg IM injection, in office, today. Should steroid injection provide no significant relief or wear off prior to leaving for vacation, then advised to call and we can send in a oral prednisone taper. Of note: advised to contact HR to send us FMLA paperwork for intermittent leave Assessment & Plan (10/01/2023 3:48 PM EDUCATIONAL ASSISTANT): Low cdai. Minimal synovitis synovitis and tenderness noted on peripheral joint exam today. Notes occasional low back stiffness in the mornings but improves with ibuprofen. Overall, continues to do well with current treatment. Continue MTX 20mg weekly, folic acid 1mg daily, and ibuprofen 800mg TID prn. Should symptoms progress, consider addition of HCQ vs humira. Could also consider prednisone for acute flares. Routine labs today. Follow up in 3-4 months. Sooner if needed. Assessment & Plan (06/04/2023 3:36 PM CDT): Low cdai. No obvious synovitis synovitis or tenderness noted on peripheral joint exam today. Notes occasional low back stiffness in the mornings but improves with ibuprofen. C/o increased lower body soreness with working longer hours and more days per week. Overall, continues to do well with current treatment. Continue MTX 20mg weekly, folic acid 1mg daily, and ibuprofen 800mg TID prn. Should symptoms progress, consider addition of HCQ vs humira. Could also consider prednisone for acute flares. Routine labs today. Follow up in 3-4 months. Sooner if needed. Assessment & Plan (01/08/2023 3:16 PM EDUCATIONAL ASSISTANT): Low cdai. Minimal synovitis without tenderness noted on peripheral joint exam today. Notes occasional low back stiffness in the mornings but improves with ibuprofen. Overall, continues to do well with current treatment. Continue MTX 20mg weekly, folic acid 1mg daily, and ibuprofen 800mg TID prn. Routine labs today. Follow up in 3-4 months. Sooner if needed. Assessment & Plan (09/04/2022 3:30 PM CDT): Low cdai. No obvious synovitis or tenderness noted on peripheral joint exam today. Notes occasional low back stiffness in the mornings but improves with ibuprofen. Has been busy at work but denies any flares like in the past prior to treatment. Overall, continues to do well with current treatment. Continue MTX 20mg weekly, folic acid 1mg daily, and ibuprofen 800mg TID prn. Routine labs today. Follow up in 3-4 months. Sooner if needed. Assessment & Plan (06/06/2022 3:08 PM CDT): Low cdai. Minimal synovitis without tenderness noted on peripheral joint exam today. Notes occasional low back stiffness in the mornings but improves with ibuprofen. Overall, continues to do well with current treatment. Continue MTX 20mg weekly, folic acid 1mg daily, and ibuprofen 800mg TID prn. Routine labs today. Follow up in 3-4 months. Sooner if needed. Assessment & Plan (02/18/2022 3:43 PM CDT): Low cdai. Minimal synovitis and joint tenderness noted on peripheral joint exam today. Notes occasional low back stiffness in the mornings but improves with ibuprofen. Overall, continues to do well with current treatment. Continue MTX 20mg weekly, folic acid 1mg daily, and ibuprofen 800mg TID prn. Routine labs today. Follow up in 3-4 months. Sooner if needed. Assessment & Plan (11/09/2021 5:19 PM EDUCATIONAL ASSISTANT): Cdai in remission. No obvious synovitis or tenderness noted on peripheral joint exam today. Notes occasional low back stiffness in the mornings but improves with ibuprofen. Overall, continues to do well with current treatment. Continue MTX 20mg weekly, folic acid 1mg daily, and ibuprofen 800mg TID prn. Routine labs today. Follow up in 3-4 months. Sooner if needed. Assessment & Plan (03/05/2021 11:51 AM CDT): Cdai in remission. No obvious synovitis or tenderness noted on peripheral joint exam today. Notes occasional low back stiffness in the mornings but improves with ibuprofen. 1 minor flare since last visit but severity and duration was improved since being on MTX. Overall, continues to do well with current treatment. Continue MTX 20mg weekly, folic acid 1mg daily, and ibuprofen 800mg TID prn. Routine labs today. Patient provided letter to wear athletic shoes while at work. Follow up in 3 months. Sooner if needed. Assessment & Plan (12/04/2020 11:54 AM EDUCATIONAL ASSISTANT): Cdai in remission. No obvious synovitis or tenderness noted on peripheral joint exam today. Notes occasional low back stiffness in the mornings but improves with ibuprofen. Denies any flares. Overall, continues to do well with current treatment. Continue MTX 20mg weekly, folic acid 1mg daily, and ibuprofen 800mg TID prn. Routine labs today. Follow up in 3 months. Sooner if needed. Assessment & Plan (07/26/2020 11:55 AM CDT): Cdai in remission. No obvious synovitis or tenderness noted on peripheral joint exam today. Notes occasional low back stiffness in the mornings but improves with ibuprofen. Continue MTX 20mg weekly, folic acid 1mg daily, and ibuprofen 800mg TID prn. Routine labs today. Follow up in 3 months. Sooner if needed. Assessment & Plan (05/03/2020 11:23 AM CDT): Cdai in remission. No obvious synovitis or tenderness noted on peripheral joint exam today. Notes occasional low back stiffness in the mornings but improves with ibuprofen. Continue MTX 20mg weekly, folic acid 1mg daily, and ibuprofen 800mg TID prn. Routine labs today. Follow up in 3 months. Sooner if needed. Assessment & Plan (01/11/2020 4:45 PM EDUCATIONAL ASSISTANT): Low cdai. Few swollen joints without tenderness noted on peripheral exam today. Feels improvement overall with MTX but does report a new onset cough that he feels worsened since increasing MTX. Denies shortness of breath, chest pain, or fevers. At this time, cough does not seem related to MTX however will hold MTX for 2 weeks and see if cough improves. Will also check a CXR. If cough resolves, advised patient to restart MTX and if cough recurs then to discontinue and we can try a different medication such as leflunomide. Continue ibuprofen 800mg TID prn. Routine labs today. Follow up in 3 months. Sooner if needed. Seen with Dr. Ulrich. Assessment & Plan (12/03/2019 12:07 PM EDUCATIONAL ASSISTANT): Low cdai. Few swollen joints without tenderness noted on peripheral exam today. Has been feeling better overall but unsure if this is due to MTX vs working less the past month. Reported bouts of depression the first week on MTX but this has resolved. Increase MTX 20mg weekly. Continue folic acid 1mg daily. Advised patient to call the office if depression/mood changes worsen on higher dose of MTX. Continue ibuprofen 800mg TID prn as he notes benefit with this. Routine labs today. 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 Assessment & Plan (10/25/2019 3:49 PM EDUCATIONAL ASSISTANT): US right hand/wrist (10/15/19): Mild effusions and power doppler on examination which will have to be correlated clinically. Marked synovial thickening in the wrist, 3rd and 4th MCP and 2nd PIP joints. Moderate synovial thickening in the 3rd PIP joint. Grade 1 power doppler in the wrist and radial/scaphoid joint. Grade 1 effusion in the volar 4th MCP and 3rd PIP joints. Serologies were unremarkable. Radiographs of the bilateral feet, hands, lumbar spine, and SI joints were normal. Continues to complain of pain in his hands as well as stiffness in his low back. Reports labral tears in bilateral hips and right rotator cuff tear. Back pain may be mechanical and could be exacerbated by hip pain. Is waiting to schedule surgery for 2019. May consider MRI of SI joints to evaluate for sacroiliitis if back symptoms do not improve following hip surgeries. Few swollen joints without tenderness noted on peripheral exam. Lumbar spine and bilateral SI joints are tender. 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 Low back pain/stiffness is suspicious for inflammatory vs mechanical pain. Will start MTX 12.5mg weekly and folic acid 1mg daily. Patient advised of the side effects of the medication, including but not limited to increased risk of infection, GI upset, increased LFTs, mouth sores, rash, diarrhea, and/or blood count abnormalities. Patient given informational handouts about RA and MTX. Continue ibuprofen 800mg TID prn as he notes some benefit with this. Follow up in 1 month. Sooner if needed. Seen with Dr. Ulrich. Assessment & Plan (10/08/2019 9:59 AM EDUCATIONAL ASSISTANT): Patient presents with a joint pain in his hips, knees, wrists, and low back for the past 3 years. Notes stiffness is persistent but does improve some with activity. Reports paresthesias and weakness in bilateral wrists. Failed naproxen. Currently taking ibuprofen 800mg TID prn with some benefit. Reports bilateral foot pain but improves with supportive foot wear. Hx of Winthrop schlatter's. Synovitis with minimal tenderness noted on peripheral exam today. Lumbar spine and SI joints are non- tender. FHx of mother and maternal grandparents with RA. Symptoms and exam are suspicious for a spondylaorthritis. Will order appropriate serologies, radiographs, and a right hand/wrist US to further evaluate. Follow up in 2 weeks. Sooner if needed. Seen with Dr. Ulrich. Encounters Date Type Department Care Team Description 08/22/[address] [phone] Trini Calderon from Last 3 Months Social History Tobacco Use Types Packs/Day Years Used Date Smoking Tobacco: Never Sex and Gender Information Value Date Recorded Sex Assigned at Not on file Legal Sex Male 1:53 AM EDUCATIONAL ASSISTANT Gender Identity Not on file Sexual Orientation Not on file Obstetrics History Last Filed Vital Signs Vital Sign Reading Time Taken Comments Blood Pressure 116/74 05/03/2025 3:38 PM CDT Pulse 73 05/03/2025 3:38 PM CDT Temperature 36.7 C (98 F) 11/09/2021 2:09 PM EDUCATIONAL ASSISTANT Respiratory Rate - - Oxygen Saturation 98% 05/03/2025 3:38 PM CDT Inhaled Oxygen Concentration - - Weight 81.2 kg (179 lb) 05/03/2025 3:38 PM CDT Height 175.3 cm (5' 9) 05/03/2025 3:38 PM CDT Body Mass Index 26.43 05/03/2025 3:38 PM CDT Plan of Treatment Health Maintenance Due Date Last Done Comments Colon Cancer Screening-Colonoscopy 1980 Depression Screening 1980 Varicella Vaccines (1 of 2 - 13+ 2-dose series) 02/01/1993 Hepatitis B Screening 02/01/1998 Regular Well Visit/Exam 18-64 02/01/1998 Pneumococcal vaccine <65 (1 of 2 - PCV) 02/01/1999 Zoster Vaccine (1 of 2) 02/01/1999 HPV Vaccines (1 - 3-dose SCDM series) 02/01/2007 DTaP/Tdap/Td Vaccine (2 - Td or Tdap) 10/28/202303/2013, 05/20/1994 Influenza Vaccine (#1) 2025 Hepatitis C Screening Completed 10/08/2019 Procedures Procedure Name Priority Date/Time Associated Diagnosis Comments HEPATITIS PANEL, ACUTE Routine 10/08/2019 10:20 AM EDUCATIONAL ASSISTANT Fatigue, unspecified type from Last 3 Months or Most Recently Relevant to Health Maintenance Results * Hepatitis panel, acute (10/08/2019 10:20 AM EDUCATIONAL ASSISTANT) Hep A IgM NON-REACT PILAR NON-REACT PILAR [facility] [place] Comment: For additional information, please refer to http://[employer]/faq/XLV650 (This link is being provided for informational/ educational purposes only.) HepBsAg NON-REACT PILAR NON-REACT PILAR [facility] [place] Hep B core IgM NON-REACT PILAR NON-REACT PILAR [facility] [place] Hep C Ab NON-REACT PILAR NON-REACT PILAR [facility] [place] SIGNAL TO CUT-OFF 0.02 <1.00 [facility] [place] Comment: HCV antibody was non-reactive. There is no laboratory evidence of HCV infection. In most cases, no further action is required. However, if recent HCV exposure is suspected, a test for HCV RNA (test code 89102) is suggested. For additional information please refer to http://[employer]/faq/BLN99h3 (This link is being provided for informational/ educational purposes only.) Blood specimen (specimen) 10/08/2019 10:20 AM EDUCATIONAL ASSISTANT 10/08/2019 10:20 AM EDUCATIONAL ASSISTANT Narrative Resulting Agency Comment Performing Organization Information: Site ID: [facility] Name: Audie Johnson Address: [address] [place] [address] Director: Jonny Bowden D.O., MPH [facility] - GE NERAL ORDERABLES Final Result [facility] from Last 3 Months or Most Recently Relevant to Health Maintenance Insurance [employer] OPEN ACCESS [employer] OPEN ACCESS Care Teams Educational Assistant Teacher Relationship Specialty Start Date End Date Dawson Murphy MD [address] [place], [place] [id number] PCP - General Internal Medicine 12/03/22 Preet Ulrich MD [address] [place] [address] Consulting Physician Rheumatology 09/16/19
[2025-08-24 00:56] VITALS: BP 111/82; PULSE 63; RESP 16; O2SAT 97
[2025-08-24 02:35] VITALS: BP 112/76; PULSE 63; RESP 17; O2SAT 98
--- OUTSIDE RECORDS SUMMARY | 2025-08-24 03:19 | XMS_ITS ---
Author Organization Unknown ENCOUNTERS Encounter Performer Location Date Diagnosis Diagnosis Status Emergency Vic Chung [facility] [address] [place] [address] [id number] Pre Admit Vic Josephine Chung [facility] [address] [place] [address] [id number] Pre Admit [facility] [address] [place] [address] [id number] Emergency [facility] [address] [place] [address] [id number] J CARLOS Emergency Marcos Liliya [facility] [address] [place] [address] [id number] J CARLOS Emergency Karime [facility] [address] [place] [address] [id number] J CARLOS *Note: Encounters from your own facility or health system may be excluded. Allergies, Adverse Reactions, Alerts Allergen Type Severity Identification Date Medications Name Date Quantity Days Supplied GPI Number
--- OUTSIDE RECORDS SUMMARY | 2025-08-24 03:19 | XMS_ITS | Clinical Summary ---
Author Organization [facility] Address [address] [place] [address] Care Team Providers Care Hydrator Operator Name Role Phone Preet Ulrich MD Unavailable Dawson Murphy MD Primary Care Provider [phone] Allergies No known active allergies Medications ibuprofen [...] Recommended physical therapy and given orders today. [facility] current use of therapeutic drug 2018 Assessment & Plan (05/03/2025 2:34 PM CDT): Hepatitis negative: 09/2019 Quantiferon negative: 09/2019 Failed meloxicam and naproxen. Assessment & Plan (01/11/2025 2:42 PM [employer]): Hepatitis negative: 09/2019 Quantiferon negative: 09/2019 Failed meloxicam and naproxen. Assessment & Plan (10/05/2024 4:01 PM [employer]): Hepatitis negative: 09/2019 Quantiferon negative: 09/2019 Failed meloxicam and naproxen. Assessment & Plan (06/10/2024 3:06 PM CDT): Hepatitis negative: 09/2019 Quantiferon negative: 09/2019 Failed meloxicam and naproxen. Assessment & Plan (01/14/2024 4:23 PM [employer]): Hepatitis negative: 09/2019 Quantiferon negative: 09/2019 Failed meloxicam and naproxen. Assessment & Plan (10/01/2023 3:31 PM [employer]): Hepatitis negative: 09/2019 Failed meloxicam and naproxen. Assessment & Plan (06/04/2023 3:19 PM CDT): Hepatitis negative: 09/2019 Failed meloxicam and naproxen. Assessment & Plan (01/08/2023 2:45 PM [employer]): Hepatitis negative: 09/2019 Failed meloxicam and naproxen. Assessment & Plan (09/04/2022 3:23 PM CDT): Hepatitis negative: 09/2019 Failed meloxicam and naproxen. Assessment & Plan (06/06/2022 2:57 PM CDT): Hepatitis negative: 09/2019 Failed meloxicam and naproxen. Assessment & Plan (02/18/2022 3:42 PM CDT): Hepatitis negative: 09/2019 Failed meloxicam and naproxen. Assessment & Plan (11/09/2021 5:19 PM [employer]): Hepatitis negative: 09/2019 Failed meloxicam and naproxen. Assessment & Plan (03/05/2021 11:33 AM CDT): Hepatitis negative: 09/2019 Failed meloxicam and naproxen. Assessment & Plan (12/04/2020 11:41 AM [employer]): Hepatitis negative: 09/2019 Failed meloxicam and naproxen. Assessment & Plan (07/26/2020 11:55 AM CDT): Hepatitis negative: 09/2019 Failed meloxicam and naproxen. Assessment & Plan (05/03/2020 11:21 AM CDT): Hepatitis negative: 09/2019 Failed meloxicam and naproxen. Assessment & Plan (01/11/2020 4:37 PM [employer]): Hepatitis negative: 09/2019 Failed meloxicam and naproxen. Assessment & Plan (12/03/2019 11:20 AM [employer]): Hepatitis negative: 09/2019 Failed meloxicam and naproxen. Assessment & Plan (10/25/2019 3:11 PM [employer]): Hepatitis negative: 09/2019 Failed meloxicam and naproxen. [...] needed. Assessment & Plan (01/11/2025 2:43 PM [employer]): Low cdai. Minimal synovitis without tenderness noted [...] needed. Assessment & Plan (10/05/2024 4:00 PM [employer]): Low-moderate cdai. Minimal synovitis with tenderness mainly [...] needed. Assessment & Plan (01/14/2024 4:31 PM [employer]): Moderate cdai. Minimal synovitis with increased tenderness noted on peripheral joint exam today along with increasing pain complaints in the hips, feet, and knees. Notes occasional low back stiffness in the mornings but improves with ibuprofen. Due to worsening joint complaints, will start approval of humira 40mg SQ [id number]. Continue MTX 20mg weekly, folic acid 1mg [...] leave Assessment & Plan (10/01/2023 3:48 PM [employer]): Low cdai. Minimal synovitis synovitis and tenderness [...] needed. Assessment & Plan (01/08/2023 3:16 PM [employer]): Low cdai. Minimal synovitis without tenderness noted [...] needed. Assessment & Plan (11/09/2021 5:19 PM [employer]): Cdai in remission. No obvious synovitis or [...] needed. Assessment & Plan (12/04/2020 11:54 AM [employer]): Cdai in remission. No obvious synovitis or [...] needed. Assessment & Plan (01/11/2020 4:45 PM [employer]): Low cdai. Few swollen joints without tenderness [...] Ulrich. Assessment & Plan (12/03/2019 12:07 PM [employer]): Low cdai. Few swollen joints without tenderness [...] time. Assessment & Plan (10/25/2019 3:49 PM [employer]): US right hand/wrist (10/15/19): Mild effusions and [...] Ulrich. Assessment & Plan (10/08/2019 9:59 AM [employer]): Patient presents with a joint pain in his hips, knees, wrists, and low back for the past 3 years. Notes stiffness is persistent but does improve some with activity. Reports paresthesias and weakness in bilateral wrists. Failed naproxen. Currently taking ibuprofen 800mg TID prn with some benefit. Reports bilateral foot pain but improves with supportive foot wear. Hx of Mobile schlatter's. Synovitis with minimal tenderness noted on [...] Type Department Care Team Description 08/22/[address] [address] Trini Calderon from Last 3 Months Social History Tobacco Use Types Packs/Day Years Used Date Smoking Tobacco: Never Sex and Gender Information Value Date Recorded Sex Assigned at Not on file Legal Sex Male 1:53 AM [employer] Gender Identity Not on file Sexual Orientation Not on file Obstetrics History Last Filed Vital Signs Vital Sign Reading Time Taken Comments Blood Pressure 116/74 05/03/2025 3:38 PM CDT Pulse 73 05/03/2025 3:38 PM CDT Temperature 36.7 C (98 F) 11/09/2021 2:09 PM [employer] Respiratory Rate - - Oxygen Saturation 98% [...] HEPATITIS PANEL, ACUTE Routine 10/08/2019 10:20 AM [employer] Fatigue, unspecified type from Last 3 Months or Most Recently Relevant to Health Maintenance Results * Hepatitis panel, acute (10/08/2019 10:20 AM [employer]) Hep A IgM NON-REACT PILAR NON-REACT PILAR [facility] [place] Comment: For additional information, please refer to http://[employer].FastPay/faq/GBZ835 (This link is being provided for informational/ [...] a test for HCV RNA (test code 24291) is suggested. For additional information please refer to http://[employer].FastPay/faq/GNH29y6 (This link is being provided for informational/ educational purposes only.) Blood specimen (specimen) 10/08/2019 10:20 AM [employer] 10/08/2019 10:20 AM [employer] Narrative Resulting Agency Comment Performing Organization Information: Site ID: [facility] Name: [facility] Address: [address] [place] [address] Director: Jonny Bowden D.O., MPH [facility] - GE NERAL ORDERABLES Final Result [facility] from Last 3 Months or Most Recently Relevant to Health Maintenance Insurance Engiver OPEN ACCESS [employer] OPEN ACCESS Care Teams Hydrator Operator Relationship Specialty Start Date End Date Dawson Murphy MD [address] [place], [place] [id number] PCP - General Internal Medicine 12/03/22 Preet Ulrich MD [address] [place] [address] Consulting Physician Rheumatology 09/16/19
--- NOTE | 2025-08-24 03:37 | ED.BACK ---
HPI - Back Pain/Injury General Chief Complaint: Back Pain/Injury Stated Complaint: back pain Time Seen by Provider: 08/24/25 00:59 History of Present Illness HPI Narrative: 45-year-old otherwise healthy female besides a history of rheumatoid arthritis on methotrexate. Patient presents to the emergency department with left-sided low back pain injuring after playing golf. He states that 1 of the swings he took tweaked his back and he had severe sudden-onset left-sided back pain. Described as a severe muscle spasm and strain. Had difficulty walking for last few days. Had difficulty getting up out of bed and doing his basic activity secondary to pain going down his legs. Saw his primary doctor who diagnosed muscle spasm and put him on steroids and muscle relaxers but he does not take any the steroids as he did not want to be up throughout the night. States that the pain has been progressively worsening and limiting his functionality. Denies any weakness in the legs, numbness or tingling in the legs or extremities. No bowel or bladder incontinence or difficulty controlling. No fever chills. No cardiac history or any previous surgeries or injuries/traumas. Related Data Home Medications ?Medication ?Instructions ?Recorded ?Confirmed ?Last Taken ?Type folic acid 1 mg tablet 1 mg PO DAILY 11/28/19 10/20/21 Unknown History ibuprofen 800 mg tablet 800 mg PO DIRECTED 11/28/19 10/20/21 Unknown History methotrexate sodium 2.5 mg tablet 2.5 mg PO WEEKLY 11/28/19 10/20/21 Unknown History Allergies Allergy/AdvReac Type Severity Reaction Status Date / Time No Known Allergies Allergy Unknown Verified 08/24/25 00:32 Review of Systems Review of Systems: As reviewed above in HPI [facility] Past Medical History Medical History Chronic back pain Rheumatoid arthritis Surgical History Surgical History History of tonsillectomy Exam Narrative: GENERAL: [Well-appearing, well-nourished, and in no acute distress.] HEAD: [Normocephalic, atraumatic.] EYES: [PERRLA and EOMI.] ENT: Nares clear, no rhinorrhea or epistaxis. Mucous membranes moist. NECK: Supple. CHEST: [Clear to auscultation. No respiratory distress.] HEART: [Regular rate and rhythm]. No murmur heard. [Normal peripheral pulses.] ABDOMEN: [Soft, nondistended], [nontender], [No rigidity or guarding] EXTREMITIES: EHL and FHL 5/5 strength and symmetric full range of motion at the ankles. Extensor mechanisms intact of both legs. Passive straight leg raise above 45? both sides elicited left-sided low back pain paraspinal/midline. Midline lumbar tenderness but no deformity or warmth, erythema. No bony tenderness along the hip. Ambulates with an antalgic gait. SKIN: Warm, dry, no rash. NEURO: [No focal deficits]. Alert and oriented [x3.] PSYCH: [Normal mood and affect.] Course Vital Signs Vital signs: Vital Signs Temperature 37.1 C 08/24/25 00:28 Pulse Rate 77 08/24/25 00:28 Respiratory Rate 22 H 08/24/25 00:28 Blood Pressure 105/72 08/24/25 00:28 Pulse Oximetry 99 08/24/25 00:28 Oxygen Delivery Room Air 08/24/25 00:28 Temperature 37.1 C 08/24/25 00:28 Pulse Rate 80 08/24/25 05:08 Respiratory Rate 17 08/24/25 05:08 Blood Pressure 118/81 08/24/25 05:08 Pulse Oximetry 96 08/24/25 05:08 Oxygen Delivery Room Air 08/24/25 00:28 MDM - Back Pain/Injury MDM Narrative Medical decision making narrative: 45-year-old otherwise healthy female besides a history of rheumatoid arthritis on methotrexate. Patient presents to the emergency department with left-sided low back pain injuring after playing golf. He states that 1 of the swings he took tweaked his back and he had severe sudden-onset left-sided back pain. Described as a severe muscle spasm and strain. Had difficulty walking for last few days. Had difficulty getting up out of bed and doing his basic activity secondary to pain going down his legs. Saw his primary doctor who diagnosed muscle spasm and put him on steroids and muscle relaxers but he does not take any the steroids as he did not want to be up throughout the night. States that the pain has been progressively worsening and limiting his functionality. Denies any weakness in the legs, numbness or tingling in the legs or extremities. No bowel or bladder incontinence or difficulty controlling. No fever chills. No cardiac history or any previous surgeries or injuries/traumas. EHL and FHL 5/5 strength and symmetric full range of motion at the ankles. Extensor mechanisms intact of both legs. Passive straight leg raise above 45? both sides elicited left-sided low back pain paraspinal/midline. Midline lumbar tenderness but no deformity or warmth, erythema. No bony tenderness along the hip. Ambulates with an antalgic gait. Patient has no red flag signs or symptoms of conus medullaris or cauda equina syndrome based on history or examination. Suspect herniated disc and peripheral neuropathy/nerve compression causing significant pain. Hemodynamically stable. No incontinence or neuro muscular findings. No weakness distally. Patient will be treated for significant level of pain and IV was established, blood work obtained in the CT of the lumbar spine ordered. He was given Solu-Medrol Dilaudid Toradol and Valium. Placed on quality assurance monitor final and observed. CT scan was unremarkable aside from some bladder distention. Patient went up to use the restroom and after we of the come back and evaluate him he had a postvoid residual of around 120 per my assessment. [place] significantly improved and ambulating without difficulty. Discussed that he likely has some nerve root compression from a herniated disc but no red flag signs or symptoms on examination but we did discuss return precautions. Given his symptomatic improvement and normal neurological status at this time he was safe for discharge and given neurosurgical referral as needed as well as PCP follow-up instructions for physical therapy and a regimen and pain control medications in addition to his steroids and Robaxin he was already prescribed by his PCP. Patient's questions answered he was discharged home at this time. Medical Records Attestation: I reviewed the patient's medical records. Lab Data Attestation: I reviewed the patient's lab results. 08/24/25 03:58 08/24/25 03:58 Labs: Lab Results 08/24/25 Range/Units 03:58 WBC 9.1 (4.5-10.0) K/mm3 RBC 4.91 (4.6-6.20) M/mm3 Hgb 15.0 (14.0-18.0) g/dL Hct 45.2 (42.0-52.0) % MCV 92.1 (80-100) fl MCH 30.5 (26-34) pg MCHC 33.2 (32-36) g/dl RDW 13.1 (11.5-14.5) % Plt Count 233 (150-375) k/mm3 MPV 9.7 (7.4-10.4) fl Immature Gran % (Auto) 0.3 (0-0.5) % Neut % (Auto) 74.2 H (45.5-73.1) % Lymph % (Auto) 15.4 L (18.3-44.2) % Bonner % (Auto) 7.9 (2.6-8.5) % Eos % (Auto) 1.8 (0-4.4) % Baso % (Auto) 0.4 (0.2-1.2) % Lymph # (Auto) 1.41 (0.9-3.2) K/mm3 Bonner # (Auto) 0.7 H (0.1-0.6) K/mm3 Eos # (Auto) 0.2 (0-0.3) K/mm3 Baso # (Auto) 0.0 (0.0-0.1) K/mm3 Abs Immat Gran (auto) 0.03 (0.00-0.031) K/mm3 Absolute Neuts (auto) 6.8 H (1.3-6.7) K/mm3 Absolute Nucleated RBC 0.000 (0.0-0.012) K/mm3 Nucleated RBC % 0.0 (0.0-0.2) % ESR 14 (0-20) mm/hr Sodium 140 (137-145) mmol/L Potassium 4.8 (3.4-5.0) mmol/L Chloride 105 (98-107) mmol/L Carbon Dioxide 28 (22-30) mmol/L Anion Gap 7 (4-12) mmol/L BUN 17 (9-20) mg/dL Creatinine 1.05 (0.7-1.3) mg/dL Estim Creat Clear Calc 79 ml/min Estimated GFR > 60 (59 - ) Glucose 92 (65-110) mg/dL Calcium 9.5 (8.4-10.2) mg/dL C-Reactive Protein 1.1 (<1.0) mg/dL Imaging Data Attestation: I personally reviewed and interpreted this imaging study as follows: My impression: No acute fractures or traumatic malalignment Discharge Plan Discharge Clinical Impression: Lumbago, Lumbar herniated disc Patient Disposition: Home Condition: Stable Instructions: Antibiotic Form, Acute Low Back Pain (ED), Lumbar Radiculopathy (ED), Lower Back Exercises (ED) Additional Instructions: Your symptoms are consistent with an acute herniated disc out of the L-spine. No neurological findings or concerns on your exam or workup today. Your CT scan shows nothing fracture dislocated. Your symptoms got better with current regimen of treatment plan. We will send you home with additional medications to take for multimodal pain control. Continue taking the steroids that your prescribed as well as the muscle relaxers. Take all the medications with food and do not take anything on an empty stomach. Follow-up with regular primary care provider and if this is a persisting concern he might be benefited by Physical therapy or neuro surgical evaluation. Return to the ER if you have increased pain in your back, you develop lower extremity weakness/numbness/paralysis, you have numbness or tingling in your private parts, or you are unable to control your ability to urinate/stool. Patient Language: Algerian Prescriptions: New hydrocodone-acetaminophen 5-325 mg tablet 1 tablet PO Q8H PRN (Reason: pain) Qty: 20 0RF ketorolac 10 mg tablet 10 mg PO Q8H PRN (Reason: pain) 5 Days Qty: 20 0RF Rx Instructions: maximum total duration of 5 days from all oral, intranasal, or parenteral formulations lidocaine 5 % adhesive patch,medicated 1 patch topical DAILY Qty: 15 0RF Rx Instructions: leave on most painful area for up to 12 hrs No Action ibuprofen 800 mg tablet 800 mg PO DIRECTED methotrexate sodium 2.5 mg tablet 2.5 mg PO WEEKLY Rx Instructions: take 7 tablets each friday folic acid 1 mg tablet 1 mg PO DAILY cetirizine [Zyrtec] 10 mg tablet 10 mg PO DAILY Qty: 30 0RF benzonatate 200 mg capsule 200 mg PO TID PRN (Reason: cough) 10 Days Qty: 30 0RF prednisone 20 mg tablet 40 mg PO DAILY 5 Days Qty: 10 0RF albuterol sulfate [Ventolin HFA] 90 mcg/actuation HFA aerosol inhaler 2 puff INHALATION .Q4 hours PRN (Reason: cough) Qty: 18 0RF cyclobenzaprine 10 mg tablet 10 mg PO BID PRN (Reason: muscle spasm) Qty: 14 0RF hydroxyzine pamoate [Vistaril] 25 mg capsule 25 mg PO TID Qty: 30 0RF Follow-up/Referrals: Algerian,Dawson Lao MD [Primary Care Provider] Stand Alone Forms: Work/School Release IP Time of Disposition: 06:41
[2025-08-24] MEDS: HYDROmorphone HCL INJ (*CRX) 1 MG/ML SYR 0.5 MG IV PUSH (03:52)
[2025-08-24] MEDS: diazePAM INJ (*CRX) 10 MG/2 ML SYRINGE 5 MG IV PUSH (03:52)
[2025-08-24] MEDS: KETOROLAC 15 MG/ML VIAL (*BKC) IV PUSH (03:52)
[2025-08-24 04:04] LABS: Hematocrit 45.2 % (42.0-52.0); Hemoglobin 15.0 g/dL (14.0-18.0); Immature Granulocyte Percent A 0.3 % (0-0.5); Lymphocytes Absolute Auto 1.41 K/mm3 (0.9-3.2); Mean Corpuscular HGB Conc 33.2 g/dl (32-36); Mean Corpuscular Hemoglobin 30.5 pg (26-34); Mean Corpuscular Volume 92.1 fl (80-100); Nucleated Red Blood Cells Absolute Auto 0.000 K/mm3 (0.0-0.012); Nucleated Red Blood Cells Perc 0.0 % (0.0-0.2); Platelet Count Result 233 k/mm3 (150-375); Red Blood Count 4.91 M/mm3 (4.6-6.20); White Blood Count 9.1 K/mm3 (4.5-10.0)
[2025-08-24 04:18] LABS: Anion Gap 7 mmol/L (4-12); Blood Urea Nitrogen 17 mg/dL (9-20); CRP 1.1 mg/dL (<1.0); Calcium 9.5 mg/dL (8.4-10.2); Carbon Dioxide 28 mmol/L (22-30); Chloride 105 mmol/L (98-107); Estimated CRCL calculation 79 ml/min; Estimated Glomerular Filt Rate > 60; Glucose 92 mg/dL (65-110); Potassium 4.8 mmol/L (3.4-5.0); Sodium 140 mmol/L (137-145)
[2025-08-24 05:08] VITALS: BP 118/81; PULSE 80; RESP 17; O2SAT 96
== END 2025-08-24 06:45 | disposition home or self-care (01) ==
PROVIDERS: Emergency Provider Student in an Organized Health Care Education/Training Program; PCP Internal Medicine
DX: M51.26 Other intervertebral disc displacement, lumbar region (principal); M06.9 Rheumatoid arthritis, unspecified; X50.9XXA Other and unspecified overexertion or strenuous movements or postures, initial encounter; Y93.53 Activity, golf; Z79.631 Long term (current) use of antimetabolite agent
CPT/HCPCS: 36415; 72131; 80048; 85025; 85652; 86140; 96374; 96375; 99284; J1171; J1885; J2919; J3360